=== PATIENT | male | born 2000 | race Hispanic/Latino ===

== ENCOUNTER 2024-04-18 14:01 | Emergency (ER) | payer SELFPAY ==
[2024-04-18 14:03] VITALS: BP 122/85
--- NOTE | 2024-04-18 14:24 | ED.MUSCINJ ---
HPI-Injury
General
Chief Complaint: Musculo-Skeletal Complaint
Source: patient
Time Seen by Provider: 04/18/24 14:08
History of Present Illness-Injury
Initial Injury comments:
23yoM with no significant past medical history presenting for evaluation of right foot pain. Patient was skateboarding 2 days ago when he fell on his right foot. He has been having pain and difficulty with weightbearing since then. He reports
bruising to the bottom of his right foot. He has been applying ice. No paresthesias. No prior injuries to the right foot.
Past History
Past History
ED Past Medical History: None
ED Past Surgical History: None
Social History
Tobacco: Non-smoker
Alcohol: None
Personal: Single
Living: with family
Employment: Employed
Family History
Family History: Negative Diabetes, Hypertension or CAD
Phy Exam
General Physical Exam
General Presentation: well appearing and no apparent distress
General age: appears stated age
General Skin: warm and dry
General Habitus: normal
General Mental: alert
ENT Exam
ENT Exam: normocephalic
Pulmonary Exam
Pulmonary Exam: no respiratory distress
Winsome Coma Scale
Eye Opening: Spontaneous
Verbal Response: Oriented
Motor Response: Obeys Commands
GCS Total Score: 15
Musculoskeletal Exam
Musculoskeletal Exam: other (Ecchymosis present to plantar aspect of R foot with associated tenderness. No tenderness to dorsum of foot. ROM of ankle and foot intact. 2+ DP pulse and sensation intact.)
Skin Exam
Skin Exam: warm/dry
Psychiatric Exam
Psychiatric Exam: normal mood/affect
Injury Course
Orders/Labs/Results
Orders:
Orders
04/18/24 14:04
Foot, Right 3 View [CR Foot - Right Min 3 Views] Urgent
Comment:
Reason For Exam: pain
04/18/24 14:43
Drake Wrap Right-Treatment ONCE
Crutches-Treatment ONCE
MDM/Problems Addressed
Differential Diagnosis Includes:
23yoM here with R foot pain and bruising since falling on foot skateboarding 2 days ago. Ecchymosis noted to dorsum of foot. No deformity and ROM intact. RLE is neurovascularly intact. Differential diagnosis includes but is not limited to:
contusion, sprain, fracture
X-rays of R foot obtained which are negative for fracture. Supportive care discussed including RICE, Tylenol, ibuprofen. Crutches provided for comfort. Advised f/u with orthopedics if symptoms persist.
*Critical Care Note
Total Time (30-74mins, 75-104mins- exclusive of procedures): Not Applicable
ED Attending Note
-
Portions of this chart may have been created with voice recognition software.� Occasional wrong word or��sound alike� substitutions may have occurred due to the inherent limitations of voice recognition software.
Discharge Plan
Departure
Patient Disposition: Home (Routine Discharge)
Date of Disposition: 04/18/24
Time of Disposition: 14:43
Patient with high blood pressure during this ER visit?: No
Discharge Problem:
Injury of right foot
Instructions: Contusion (DC)
Prescriptions:
No Action
No Current Medications
0
Referrals:
Shaista Arango I., DO [Active] -
NONE,* [Family Provider] -
Stand Alone Forms: Return to Work
Activity Restrictions/Additional Instructions:
Rest, ice, compress, and elevate your foot. Take Tylenol and ibuprofen for pain. Use crutches as needed.
Please follow-up with orthopedics if symptoms persist.
Interventions
Interventions:
*Risk Screen - Suicide Last Done: 04/18/24 14:03
*General Assessment Last Done: 04/18/24 14:03
*Neglect/Abuse Screening Last Done: 04/18/24 14:03
*ED COVID-19 Vaccine History Last Done: 04/18/24 14:03
*Nursing Disposition Last Done: 04/18/24 15:10
ED-Musculoskeletal Assessment Last Done: 04/18/24 14:19
Discharge Date and Time
Discharge Date/Time: 04/18/24 15:12
Print Language: AZERI
== END 2024-04-18 15:12 | disposition home or self-care (01) ==
LOC: EMR 14:01
PROVIDERS: EMERGENCY PHYSICIAN Emergency Medicine
DX: S99.921A Unspecified injury of right foot, initial encounter (principal); S90.31XA Contusion of right foot, initial encounter; W19.XXXA Unspecified fall, initial encounter
CPT/HCPCS: 99283; 73630